=== PATIENT | female | born 1990 | race Caucasian/White ===

== ENCOUNTER 2020-04-04 07:30 | Emergency (ER) | payer BC, MEDICAID ==
[~2020-04-04] VITALS: Ht 170.2 cm; Wt 81.0 kg
[~2020-04-04 07:30] MED LIST: CALC500T2 PO; FERR325E14 PO; FOLI1TAB19 PO; PREN-385 PO
[2020-04-04 07:34] VITALS: BP 130/77
--- NOTE | 2020-04-04 07:49 | NUR ---
29 Y/O FEMALE C/O ANXIETY AND INSOMNIA X1 WEEK. PT DENIES ANY RECREATIONAL DRUG USE, AND STATES SHE HAS BEEN TAKING MELATONIN AND CBD FOR TWO WEEKS. RESPIRATIONS EVEN AND UNLABORED. PATIENT IS RESTLESS AND FEELS LIKE SHE CANNOT SIT DOWN, SHE MUST STAY STANDING. TREMORS NOTED IN BILAT LEGS. AAOX4. AMBULATORY VSS NKDA
[2020-04-04 08:27] VITALS: BP 130/77
--- NOTE | 2020-04-04 08:27 | NUR ---
Patient discharged with v/s stable. Written and verbal after care instructions given and explained. Patient alert, oriented and verbalized understanding of instructions. Ambulatory with steady gait. All questions addressed prior to discharge. ID band removed. Patient advised to follow up with PMD. Rx of AMBIEN, DIPHENHYRDRAMINE given. Patient educated on indication of medication including possible reaction and side effects. Opportunity to ask questions provided and answered.
== END 2020-04-04 08:37 | disposition home or self-care (01) ==
LOC: MED 07:30
DX: G47.00 Insomnia, unspecified (principal); G25.71 Drug induced akathisia; F41.9 Anxiety disorder, unspecified; R03.0 Elevated blood-pressure reading, without diagnosis of hypertension; Z79.899 Other long term (current) drug therapy
CPT/HCPCS: 99283; 99284

== ENCOUNTER 2020-04-08 18:09 | Inpatient (IN) | payer BC ==
[~2020-04-08] VITALS: Ht 170.2 cm; Wt 82.1 kg
[2020-04-08 18:12] VITALS: BP 139/81
[2020-04-08] MEDS ORDERED: NACL 0.9% 1,000 ML IV ONE (18:15)
--- NOTE | 2020-04-08 18:20 | NUR ---
PT WENT TO BED 6 VIA W/C.
--- NOTE | 2020-04-08 18:21 | NUR ---
PT TOOK IBUPROFEN 10 PILLS & AMBIAN 5MG 15 PILLS X 20 MINS AGO. PT IS A&O X4. UNDERSTANDS CONCEPTS, CALM, RELAXED, +SLURRED AND CLEAR SPEECH. GCS OF 15. SLOW TO RESPOND WHEN ASKED QUESTIONS AND WHEN TO DO TASKS. MILD WEAKNESS STRENGTH ON BUE. UNSTEADY AND UNCOORDINATED GAIT. VSS. NO RESP DISTRESS NOTED. LUNG SOUNDS CLEAR ALL THROUGHOUT. EQUAL CHEST RISE AND FALL. PERRLA 5MM BRISK. +AROUSABLE WITH VERBAL STIMULI. CAP REFILL < 3. DENIES ANY NUMBNESS OR TINGLING ON EXTREMTIES. PT SAYS SHE TOOK AMBIEN AND IBUPORFEN TO STOP THE TREMORS AND HER EPILEPSY. PT ALSO SAYS SHE WASNT TRYING TO KILL HERSELF. NKDA. PMH: INSOMNIA, TREMORS, EPILEPSY, SUICIDE ATTEMPT (1 AND 1/2 YEARS AGO BY OD)
--- NOTE | 2020-04-08 18:32 | NUR ---
IV MANAGEMENT INITIATED
--- NOTE | 2020-04-08 18:33 | NUR ---
EKG BEING PERFORMED BY SONY MORE.
[2020-04-08 18:40] LABS: BASOPHILS # (AUTO) 0.1 K/uL (0.00-0.22); BASOPHILS % (AUTO) 0.8 % (0.0-2.0); EOSINOPHILS # (AUTO) 0.2 K/uL (0-0.4); HEMATOCRIT 34.8 % (36-48); HEMOGLOBIN 11.6 g/dL (12.0-16.0); LYMPHOCYTES # (AUTO) 2.2 K/uL (2.5-16.5); LYMPHOCYTES % (AUTO) 35.8 % (20.5-51.1); MEAN CORPUSCULAR HEMOGLOBIN 31 pg (27-31); MEAN CORPUSCULAR HGB CONC 33 g/dL (33-37); MEAN CORPUSCULAR VOLUME 94.6 fL (80-94); MONOCYTES # (AUTO) 0.5 K/uL (0.8-1.0); MONOCYTES % (AUTO) 7.7 % (1.7-9.3); NEUTROPHILS # (AUTO) 3.3 K/uL (1.8-7.7); NEUTROPHILS % (AUTO) 52.7 % (42.2-75.2); PLATELET COUNT (AUTO) 322 K/uL (140-450); RED BLOOD CELL COUNT(AUTO) 3.68 MIL/uL (4.20-5.40); RED CELL DISTRIBUTION WIDTH 14.2 % (11.6-13.7); WHITE BLOOD COUNT (AUTO) 6.3 K/uL (4.8-10.8)
--- NOTE | 2020-04-08 18:45 | NUR ---
CALLED [facility]ISON CONTROL AND SPOKE TO ADELITA, PHARMACIST. ADELITA ADVICE TO ORDER BLOOD WORK OF METABOLIC PANEL, TYLENOL, AND ASPIRIN FOR TOX SCREEN. WELL TO OBSERVE PT FOR 4-6 HRS. ALEJANDRO ERVIN MADE AWARE.
--- NOTE | 2020-04-08 19:03 | NUR ---
NOTIFIED ALEJANDRO CAREY ABOUT PTS HR GOING DOWN TO 44. NO NEW ORDERS OR CHANGES AT THIS TIME. WILL CONT TO MONITOR. ERMDS MADE AWARE.
--- NOTE | 2020-04-08 19:15 | NUR ---
REPORT RECIEVED FROM SONY GREENE. TRANSFER OF CARE AT THIS TIME.
--- NOTE | 2020-04-08 19:19 | NUR ---
Dr. Rider examining patient.
--- NOTE | 2020-04-08 19:20 | NUR ---
[place] [employer] AT BEDSIDE
--- NOTE | 2020-04-08 19:20 | NUR ---
ALEJANDRO LUQUE AT BEDSIDE, EVALUATING PT. [place] [employer] AT BEDSIDE. PT ANSWERED "NO" TO WANTING TO KILL HERSELF, PD DID NOT PUT PT ON HOLD DUE TO PTS ANSWER.
--- NOTE | 2020-04-08 19:20 | NUR ---
Pt report given to SONY GLOVER. Transfer of care at this time.
[2020-04-08 19:21] LABS: ANION GAP 13.7 (8-16); CARBON DIOXIDE 28.5 mmol/L (21-32); CHLORIDE 100 mmol/L (98-107); CREATININE 0.8 mg/dL (0.6-1.3); GFR ARICAN-AMERICAN 108 mL/min (>90); GLUCOSE 78 mg/dL (74-106); POTASSIUM 3.2 mmol/L (3.5-5.1); SODIUM SERUM 139 mmol/L (136-145); UREA NITROGEN, BLOOD 10 mg/dL (7-18)
[2020-04-08 19:24] LABS: BARBITURATE, URINE NEGATIVE ng/ml (NEG <=200); BENZODIAZEPINE, URINE NEGATIVE ng/mL (NEG <=200); CANNABINOID, URINE POSITIVE ng/mL (NEG <=50); COCAINE, URINE NEGATIVE ng/mL (NEG <=300); OPIATE, URINE NEGATIVE ng/mL (NEG <=2000); PHENCYCLIDINE SCREEN,URINE NEGATIVE ng/mL (NEG <=25)
[2020-04-08 19:25] LABS: ASPARTATE AMINOTRANSFERASE 17 U/L (15-37); TOTAL BILIRUBIN 0.4 mg/dL (0.0-1.0)
[2020-04-08 19:27] LABS: ACETAMINOPHEN < 0.5 ug/ml (10-30); SALICYLATE < 2.8 mg/dL (2.8-20.0)
--- NOTE | 2020-04-08 19:48 | NUR ---
PT UNAROUSABLE TO NAME. PT BARELY ABLE TO OPEN EYES. PT ON MACHINERY ENGINEER/PULSE OX, IN HIGH FOWELRS POSITION. VSS. EQUAL CHEST RISE AND FALL. BED LOCKED AND IN LOWEST POSITION. SIDE RAILS X2.
--- NOTE | 2020-04-08 21:00 | NUR ---
PT STILL ONLY ABLE TO KEEP HER EYES OPEN FOR A FEW SECONDS. SLOW SLURRED SPEECH, A&O X4. EQUAL CHEST RISE AND FALL. PULSE OX AND BRAIDING MACHINE OPERATOR IN PLACE. BED LOCKED AND IN LOWEST POSITION. SIDE RAILS X2.
--- NOTE | 2020-04-08 21:30 | NUR ---
SPOKE WITH PTS ASHLEY TO UPDATE ON PTS CURRENT STATUS AND PLAN OF CARE. [phone]
--- NOTE | 2020-04-08 23:55 | NUR ---
ATTEMPTED TO WAKE PT UP TO TELE PSYCH. PT UNABLE TO KEEP EYES OPEN BUT ANSWERED ALL QUESTIONS APPROPRIATELY, ORIENTED TO NAME, PLACE, TIME AND DATE. ALEJANDRO LUQUE MADE AWARE.
[2020-04-09] MEDS ORDERED: HYDROcodone/APAP 7.5/325 MG 1 TAB PO PRN (00:25)
[2020-04-09] MEDS ORDERED: DOCUSATE SODIUM 100 MG GELCAP PO PRN (00:25)
[2020-04-09] MEDS ORDERED: POTASSIUM CHLORIDE 10 MEQ TABER PO PRN (00:25)
[2020-04-09] MEDS ORDERED: ONDANSETRON 4 MG/2 ML VIAL IM/IVP PRN (00:25)
[2020-04-09] MEDS ORDERED: ACETAMINOPHEN 325 MG TAB PO PRN (00:25)
--- NOTE | 2020-04-09 00:30 | NUR ---
covering for primary RNIlana. assumed pt care at this time.
--- NOTE | 2020-04-09 00:50 | NUR ---
pt able to make conversations for about 2 minutes [address] still lethargic. Dr. Rider made aware.
[2020-04-09 00:53] LABS: FREE T4 (FREE THYROXINE) 0.97 ng/dL (0.76-1.46); MAGNESIUM 1.6 mg/dL (1.8-2.4); PHOSPHORUS 4.4 mg/dL (2.5-4.9); THYROID STIMULATING HORMONE 2.08 uIU/mL (0.34-3.74)
--- NOTE | 2020-04-09 03:00 | NUR ---
PT AWAKE AND ASKING TO USE THE RR. PT AMBULATED WITH STEADY GAIT TO RR, PROVIDED WITH A WASHCLOTH TO CLEAN FACE PT REQUESTED. PT AMBULATED BACK TO BED WITH STEADY GAIT AND PLACED BACK ON COMPANY SECRETARY. PT ASKING IF SHE COULD SPEAK TO HER , PHONE PROVIDED. PT TALKING TO HER IN BED. POSITIONED FOR COMFORT AND PT IS NOW ASLEEP IN BED. COMPANY SECRETARY AND PULSE OX IN PLACE. BED LOCKED AND IN LOWEST POSITION. SIDE RAILS X2.
--- NOTE | 2020-04-09 05:00 | NUR ---
PT IN BED ASLEEP, EASILY AROUSABLE TO NAME. EQUAL CHEST RISE AND FALL, BOLT MAKER AND PULSE OX IN PLACE. SEIZURE PADS IN PLACE. BED LOCKED, LOWEST POSITION, SIDE RAILS X2.
[2020-04-09 05:39] LABS: BASOPHILS # (AUTO) 0.1 K/uL (0.00-0.22); BASOPHILS % (AUTO) 1.1 % (0.0-2.0); EOSINOPHILS # (AUTO) 0.2 K/uL (0-0.4); EOSINOPHILS % (AUTO) 4.9 % (0.0-4.0); HEMATOCRIT 33.8 % (36-48); HEMOGLOBIN 11.4 g/dL (12.0-16.0); LYMPHOCYTES # (AUTO) 1.8 K/uL (2.5-16.5); LYMPHOCYTES % (AUTO) 36.3 % (20.5-51.1); MEAN CORPUSCULAR HEMOGLOBIN 32 pg (27-31); MEAN CORPUSCULAR HGB CONC 34 g/dL (33-37); MEAN CORPUSCULAR VOLUME 94.2 fL (80-94); MONOCYTES # (AUTO) 0.3 K/uL (0.8-1.0); MONOCYTES % (AUTO) 6.7 % (1.7-9.3); NEUTROPHILS # (AUTO) 2.5 K/uL (1.8-7.7); PLATELET COUNT (AUTO) 301 K/uL (140-450); RED BLOOD CELL COUNT(AUTO) 3.59 MIL/uL (4.20-5.40)
[2020-04-09 06:06] LABS: ANION GAP 12.7 (8-16); CARBON DIOXIDE 25.4 mmol/L (21-32); CREATININE 0.7 mg/dL (0.6-1.3); POTASSIUM 4.1 mmol/L (3.5-5.1)
--- NOTE | 2020-04-09 06:36 | NUR ---
PT AMBULATED TO RR WITH STEADY GAIT. PT RETURNED TO BED LOCKED AND IN LOWEST POSITION. SIDE RAILS X2. REBAR BENDER AND PULSE OX IN PLACE.
[2020-04-09] MEDS ORDERED: ZOLP10TA1 PO (06:42)
[2020-04-09] MEDS ORDERED: BEN50 PO (06:42)
--- NOTE | 2020-04-09 07:22 | NUR ---
Patient will be admitted to care of DR. ZAVALA. Admited to TELE. Will go to room 106A. Belongings list completed. Report to SONY MENDOSA.
--- NOTE | 2020-04-09 07:22 | NUR ---
RECEIVED REPORT FROM ER NURSE BRIAN. PT RESTING IN BED, AOX4-DROWSY, ON ROOM AIR WITH LEFT AC #20/SL. ORIENTED PT TO BEDROOM, BED AND CALL LIGHT. DISCUSSED PLAN OF CARE AND PT VERBALIZED UNDERSTANDING. MRSA NARES COLLECTED AND TOLERATED WELL.CALL LIGHT WITHIN REACH. NO S/S OF RESPIRATORY DISTRESS OR DISCOMFORT NOTED AT THIS TIME. WILL CONTINUE TO MONITOR.
[2020-04-09 08:00] VITALS: BP 116/73
--- NOTE | 2020-04-09 08:45 | NUR ---
PATIENT HAS BEEN SCREENED AND CATEGORIZED LOW NUTRITION RISK. PATIENT WILL BE SEEN WITHIN 7 DAYS OF ADMISSION. 04/15/[address]
--- NOTE | 2020-04-09 09:00 | NUR ---
PT RESTING IN BED. CALL LIGHT WITHIN REACH. NO S/S OF RESPIRATORY DISTRESS OR DISCOMFORT NOTED AT THIS TIME. WILL CONTINUE TO MONITOR.
--- NOTE | 2020-04-09 10:00 | NUR ---
DR. OSORIOREES IN TO SEE PT AND WAS PLACED ON A 5150 HOLD. ASHLEY CRUZ IS AWARE. PERSONAL BELONGINGS HAVE BEEN TAKEN BY SECURITY FOR SAFETY. 1:1 SITTER ESTABLISHED. CALL LIGHT WITHIN REACH. NO S/S OF RESPIRATORY DISTRESS OR DISCOMFORT NOTED AT THIS TIME. WILL CONTINUE TO MONITOR.
[2020-04-09] MEDS: LORazepam 0.5 MG TAB PO PRN ×2 (10:57→11:58)
--- NOTE | 2020-04-09 10:57 | NUR ---
PT C/O ANXIETY. DR. ZAVALA ORDERED ATIVAN AND WAS GIVEN. PT TOLERATED WELL. CALL LIGHT WITHIN REACH. NO S/S OF RESPIRATORY DISTRESS OR DISCOMFORT NOTED AT THIS TIME. WILL CONTINUE TO MONITOR.
--- NOTE | 2020-04-09 11:58 | NUR ---
PT C/O ANXIETY. DR. ZAVALA ON THE UNIT AND WAS ORDERED TO CHANGE ATIVAN TO 1MG AND GIVE THE REMAINING 0.5MG. PT TOLERATED WELL. CALL LIGHT WITHIN REACH. NO S/S OF RESPIRATORY DISTRESS OR DISCOMFORT NOTED AT THIS TIME. WILL CONTINUE TO MONITOR.
--- NOTE | 2020-04-09 14:00 | NUR ---
PT RESTING IN BED. CALL LIGHT WITHIN REACH. NO S/S OF RESPIRATORY DISTRESS OR DISCOMFORT NOTED AT THIS TIME. WILL CONTINUE TO MONITOR.
--- NOTE | 2020-04-09 15:32 | NUR ---
DISCHARGE PLANNING: CONTACTED COLLIN BLACKMAN KILLINGTON AT [phone], NO ANSWER. LEFT MESSAGE. WILL FOLLOW UP. Addendum: 04/10/20 at 923 by Ann-Marie Garcia CONTACTED COLLIN HERNANDEZ AGAIN TO FOLLOW UP, NO ANSWER LEFT MESSAGE. WILL FOLLOW UP. Addendum: 04/10/20 at 924 by Ann-Marie Garcia CM RECEIVED A CALL BACK FROM COLLIN HERNANDEZ MAYELIN ESAU PETTY, SHE STATED NOT ALL [facility] PATIENTS ARE ASSIGNED TO HER. THIS ONE IS ASSIGNED TO RON ESCOBAR AT [phone]. WILL FOLLOW UP. Addendum: 04/10/20 at 1344 by Freddy Butler SS DAVID CONTACTED PHYLICIA [phone] [facility] TO INFORM HER THAT PATIENT IS MEDICALLY CLEARED. PHYLICIA STATED THAT SHE WILL REACH OUT TO PREVIOUS ACCEPTING FACILITY AND CONTINUE TO SEEK PLACEMENT FOR PATIENT.
--- NOTE | 2020-04-09 15:35 | NUR ---
SOCIAL WORK NOTE: Patient's Orientation Person Situation Place Time Information Provided By PATIENT Comments DAVID MET WITH PATIENT AT BEDSIDE TO COMPLETE ASSESSMENT AND ASSESS FOR RISK. Brokerage Office Manager, Realtionship and Phone Number ASHLEY CRUZ [phone] [facility] Power of Manager Commodities No Does Patient Have a POLST No Identifying Problems Mental Health Is A Social Work Consult Needed No Mandate Report Filed No Explanation Of Identifying Problems PATIENT IS A 30-YEAR-OLD FEMALE ADMITTED FOR OVERDOSE. PATIENT HAS NO REPORTED PMHX. PATIENT DENIED MENTAL HEALTH HISTORY AND SUBSTANCE ABUSE HISTORY. PATIENT WAS GUARDED DURING ASSESSMENT AND STATED THAT HER OVERDOSE WAS ACCIDENTAL. PATIENT STATED THAT SHE TOOK HER MEDICATION AND THAT SHE DID NOT REALIZE HOW MUCH SHE TOOK. PATIENT DENIED THAT SHE OVERDOSED. PATIENT REFUSED ALL RELEVANT RESOURCES AND DISCONTINUED ASSESSMENT. Admitted From Home Pre-Admission Level Of Functioning Status Independent/Ambulatory Prior Resources/Services Used In Last 12 Months No Prior Resources Used Prior DME No Prior DME Used Dialysis Comments PATIENT STATED SHE DOES NOT RECEIVE DIALYSIS. Living Situation Lives With Family House Patient Had Caregiver No Home Support No Caregiver Issues Financial Issues No Known Financial Issue Factors/Needs Psych Placement/Referral Pt/Rep Participated In Discharge Plan Yes Patient/Family Agress With Discharge Plan Yes Discharge Plan Comments TENTATIVE DISCHARGE PLAN IS FOR PATIENT TO BE DISCHARGED TO PSYCHIATRIC FACILITY. DC Plan Status Initiated Addendum: 04/09/20 at 1536 by Freddy Butler SS DAVID FAXED [id number] [facility] [phone]. [facility] RECEIVED [phone] AND CLINICALS.
[2020-04-09 16:00] VITALS: BP 110/63
--- NOTE | 2020-04-09 16:00 | NUR ---
PT RESTING IN BED. USED PHONE TO CALL AFTER HE WAS UPDATED. CALL LIGHT WITHIN REACH. NO S/S OF RESPIRATORY DISTRESS OR DISCOMFORT NOTED AT THIS TIME. WILL CONTINUE TO MONITOR.
--- NOTE | 2020-04-09 17:12 | NUR ---
CC has received packet.
--- NOTE | 2020-04-09 18:00 | NUR ---
PT SLEEPING IN BED. CALL LIGHT WITHIN REACH. NO S/S OF RESPIRATORY DISTRESS OR DISCOMFORT NOTED AT THIS TIME. WILL CONTINUE TO MONITOR.
--- NOTE | 2020-04-09 19:16 | NUR ---
Call Center PM shift is aware of patient and will work on bed placement during shift.
--- NOTE | 2020-04-09 19:28 | NUR ---
Referrals were faxed to [facility] and [facility] for review. Tele unit will be notified if a bed is available and Call Center will follow up during shift.
--- NOTE | 2020-04-09 19:30 | NUR ---
ENDORSED PT CARE TO LANDSCAPE MANAGER NURSE TING FOR CONTINUITY OF CARE. PT IN STABLE CONDITIONS AT THIS TIME.
--- NOTE | 2020-04-09 19:30 | NUR ---
RECEIVED PT AAOX4 , NID - O2 SAT WNL , IV SITE INTACT AND PATENT , ON SUICIDAL WATCH - [address] VEGA - ON 1:1 SITTER . SAFETY MEASURES IN PLACE . PLAN OF CARE DISCUSSED BUT SHOWING LESS INTEREST AND MOTIVATION - NEEDS REINFORCEMENT . ON TELE MONITOR . WILL CONT. TO MONITOR . DENIES ANY PAIN .
[2020-04-09 20:00] VITALS: BP 113/68
--- NOTE | 2020-04-09 20:49 | NUR ---
Spoke with Martín with [facility] regarding bed placement. Requested to have patients RN call [facility] for report on patient and they will let us know if they can accommodate.
--- NOTE | 2020-04-09 20:52 | NUR ---
Called [facility] Tele unit and spoke with patients nurse Josseline. Was asked by Josseline to call back due to being in another patients room.
--- NOTE | 2020-04-09 21:12 | NUR ---
Called [facility] Tele unit and gave patients nurse Aurelia phone number to call report on patient and also let patient's nurse know that they will let her know if they will accommodate.
--- NOTE | 2020-04-09 21:30 | NUR ---
WHEN I ATTEMPTING TO CONTACT THE FESTUS HALEY TO GIVE THE REPORT - SOME ONE FROM [facility] CALL ME AND WANTS GATHER PT'S INFO TO ASSESS IF THEY CAN ACCOMODATE THE PT . - WHEN THE GEOCHEMISTRY TEACHER OF [facility] KNOWS ROMERO THE PT HAS MEDICAL HX OF EPILEPSY - SHE ASKING ME IF THE PT IS MEDICALLY CLEARED FROM TRANSFER - TO SUM IT UP ALL - OUR THE GEOCHEMISTRY TEACHER IS NOT YET DECIDE IF THEY CAN ACCOMODATE THE PT. BECAUSE THEY WANT THE DOCTOR DECLARED THE PT MEDICALLY CLEARED BEFORE THE TRANSFER . THERE IS NO DOCTOR'S ORDER FROM DR. VEGA THAT PT. IS FOR TRANSFER TO [facility] PLUS DR. ZAVALA NOT YET FINALIZED THE PT'S STATUS IF SHE IS MEDICALLY CLEARED SINCE THE PT. HAS HX OF EPILEPSY - CHARGE NURSE JOHN INFORMED ABOUT THIS . WILL ENDORSE TO AM SHIFT ABOUT THIS MATTER TAO . Addendum: 04/09/20 at 2303 by Josseline Kenny RN THE NURSE KIM ENDORSED TO ME DR. ZAVALA WANTS TO FIND OUT THE ROOT / CAUSE OF PT'S TREMORS .- WILL ENDORSE - HANDY Addendum: 04/10/20 at 0401 by Josseline Kenny RN THE WORDS CLEARED FROM TRANSFER IN ABOVE NURSE'S NOTE IS TYPOGRAPHICALLY ERROR , INSTEAD OF CLEARED TO TRANSFER . AND THE WORD " OUR " BEFORE THE GEOCHEMISTRY TEACHER IS AN ERROR TOO INSTEAD OF THE GEOCHEMISTRY TEACHER .- HANDY
--- NOTE | 2020-04-09 22:50 | NUR ---
REFER TO DR. SALLY OLIVEIRA. HR ON TELE MONITOR 44 , BP 90/59 , O2 SAT 99 % , PT IS KEEP ASKING FOR ATIVAN - THE ATIVAN 0.5 MG /TAB P.O LAST GIVEN WAS 1158AM . Addendum: 04/10/20 at 0406 by Josseline Kenny RN ON 1 :1 MACKTER .
--- NOTE | 2020-04-09 23:03 | NUR ---
Call Center is aware of situation and is pending clearance from MD, will endorse to AM shift to follow up.
--- NOTE | 2020-04-09 23:10 | NUR ---
GIVE ANOTHER ATIVAN 0.5 MG /TAB P.O - STAT PRN ORDERD BY . WILL CONT. TO MONITOR . Addendum: 04/10/20 at 0407 by Josseline Kenny RN ON 1:1 SHARLA
[2020-04-09] MEDS ORDERED: LORazepam 0.5 MG TAB PO PRN (23:25)
[2020-04-10] VITALS: BP 90/60
[2020-04-10] MEDS ORDERED: LORazepam 0.5 MG TAB PO STA (00:03)
--- NOTE | 2020-04-10 00:06 | NUR ---
PHARMACIST CALL ME - TO REVISE THE ATIVAN ORDER - SHE SAID JUST PUT STAT .
--- NOTE | 2020-04-10 00:49 | NUR ---
I'M ABOUT TO GIVE ATIVAN , BUT THE PT SLEEPING , CHEST RISE AND FALL EQUALLY - SKIN IS GOOD IN COLOR , APPEARS COMFORTABLY SLEEPING ON BED - ON TELE MONITOR - WILL CONT. TO MONITOR - JUST GOT LATEST V/S . Addendum: 04/10/20 at 0407 by Josseline Kenny RN ON 1:1 SHARLA
--- NOTE | 2020-04-10 02:00 | NUR ---
MADE ROUNDS , - PT - SLEEPING - CHEST RISE AND FALL EQUALLY , SKIN IN GGOD COLOR - ON TELE MONITOR , ON 1:1 SITTER . WILL CONT. TO MONITOR .
--- NOTE | 2020-04-10 03:35 | NUR ---
MADE ROUNDS , SLEEPING CHEST RISE AND FALL EQUALLY - - ON TELE MONITOR.
[2020-04-10 04:00] VITALS: BP 100/60
--- NOTE | 2020-04-10 05:20 | NUR ---
COMPLAINING OF ANXIETY - SHE SHOWING TO ME HER LEGS HAS TREMORS - THE ONE DOSE OF 0.5 MG OF ATIVAN TAB. GIVEN - INFORM JOHN THE CHARGE THAT TAB IS SUPPOSE TO BE AT 0002 BUT I DID NOT BOTHER THE PT. ON THAT TIME JUST TO GIVE THE ATIVAN BEC. ON THAT TIME PT IS SOUNDLY SLEEPING - APPEARS NOT IN ANXIETY - AND I LET HER TO RELAX AND SLEEP - WILL ENDORSE .
--- NOTE | 2020-04-10 05:26 | NUR ---
IN THE FRONT OF JOHN THE CHARGE NURSE I WASTE THE 0.5MG OF ATIVAN ( THE HALF OF ATIVAMN 1MG /TAB THAT I TOOK OUT WHILE AGO - WE CAN'T DO A WASTE RECORD IN THE [facility] BECAUSE THE DRUG DOES NOT APPEAR ON THE SCREEN .
[2020-04-10 06:08] LABS: BASOPHILS % (AUTO) 0.8 % (0.0-2.0); EOSINOPHILS # (AUTO) 0.2 K/uL (0-0.4); EOSINOPHILS % (AUTO) 3.6 % (0.0-4.0); HEMOGLOBIN 12.8 g/dL (12.0-16.0); LYMPHOCYTES # (AUTO) 1.6 K/uL (2.5-16.5); LYMPHOCYTES % (AUTO) 31.9 % (20.5-51.1); MEAN CORPUSCULAR HEMOGLOBIN 32 pg (27-31); MEAN CORPUSCULAR HGB CONC 34 g/dL (33-37); MEAN CORPUSCULAR VOLUME 94.7 fL (80-94); MONOCYTES # (AUTO) 0.4 K/uL (0.8-1.0); MONOCYTES % (AUTO) 7.4 % (1.7-9.3); NEUTROPHILS # (AUTO) 2.9 K/uL (1.8-7.7); NEUTROPHILS % (AUTO) 56.3 % (42.2-75.2); PLATELET COUNT (AUTO) 348 K/uL (140-450); RED BLOOD CELL COUNT(AUTO) 4.01 MIL/uL (4.20-5.40); WHITE BLOOD COUNT (AUTO) 5.1 K/uL (4.8-10.8)
[2020-04-10 06:41] LABS: CARBON DIOXIDE 25.9 mmol/L (21-32); CREATININE 0.7 mg/dL (0.6-1.3); POTASSIUM 3.9 mmol/L (3.5-5.1)
[2020-04-10 06:48] LABS: MAGNESIUM 1.7 mg/dL (1.8-2.4); PHOSPHORUS 4.1 mg/dL (2.5-4.9)
--- NOTE | 2020-04-10 07:30 | NUR ---
RECEIVED REPORT FROM NIGHT NURSE PATIENT IS SLEEPING, ON ROOM AIR, 5150 HOLD AND 1:1 SITTER, AMBULATORY, SINUS BRADYCARDIA, AND IV SITES INTACT AND PATENT ON LEFT AC SALINE LOCK. SAFETY MEASURES IN PLACE AND CALL LIGHT WITHIN REACH. WILL CONTINUE TO MONITOR.
--- NOTE | 2020-04-10 07:30 | NUR ---
ENDORSED TO AM SHIFT - PT STABLE - SHE HAD ONCE VOIDED SHE SAID - I TOLD TO AM SHIFT NURSE MICHELINE PT IS REQUESTING FOR STOOL SOFTENER .- ENDORSED .
[2020-04-10 08:00] VITALS: BP 108/63
--- NOTE | 2020-04-10 08:00 | NUR ---
MAGNESIUM LEVEL AT 1.7 DR ZAVALA AWARE AND ORDERED MAGNESIUM OXIDE 400 MG ONCE.
--- NOTE | 2020-04-10 08:15 | NUR ---
MEDICATION GIVEN DOCUSATE SODIUM 100MG FOR CONSTIPATION. PATIENT STATED UNABLE TO SLEEP WELL LAST NIGHT AND STILL WILL TREMORS ON BOTH LEGS.
--- NOTE | 2020-04-10 08:48 | NUR ---
MAGNESIUM OXIDE GIVEN AT THIS TIME. PT IS STABLE
[2020-04-10] MEDS ORDERED: MAGNESIUM OXIDE 400 MG TAB PO SCH (09:00)
--- NOTE | 2020-04-10 09:07 | NUR ---
Change of shift report given earlier. Will continue to monitor notes for confirmation of clearance to proceed with bed placement
[2020-04-10 10:08] LABS: T4 (THYROXINE) 7.2 ug/dL (4.5-12.0)
--- NOTE | 2020-04-10 10:41 | NUR ---
per Charge nurse Lanre CARDOZA , Call Center will no longer need to look for placement , pt. is to be DCD in the AM. Lanre CARDOZA made aware just to notify Call Center if anything changes.
[2020-04-10 12:00] VITALS: BP 107/52
--- NOTE | 2020-04-10 12:00 | NUR ---
MADE ROUND AT THIS TIME PT IS AWAKE AND CHECK VITAL SIGNS BP 107/52 SC 85 SINUS BRADYCARDIA ON TELEMONITOR HR 57.
[2020-04-10] MEDS: LORazepam 1 MG TAB PO PRN ×2 (13:13→21:01)
--- NOTE | 2020-04-10 13:14 | NUR ---
ANXIETY MEDICATIONS GIVEN CHECK VITAL SIGNS PRIOR TO MEDICATION BP 109/[address] ZAVALA IS AWARE.
--- NOTE | 2020-04-10 15:00 | NUR ---
MADE ROUNDS AT THIS TIME PT IS STABLE AND SLEEPING, NO DISTRESS NOTED.
[2020-04-10 16:00] VITALS: BP 91/64
--- NOTE | 2020-04-10 19:20 | NUR ---
ENDORSED TO NIGHT NURSE FOR CONTINUITY OF CARE. PT IS STABLE.
--- NOTE | 2020-04-10 19:25 | NUR ---
RECEIVED PT IN STABLE CONDITION FROM AM NURSE. MED SURG PT WITH 1;1 SITTER IN ATTENDANCE. AWAKE,ALERT AND ORIENTED X4. NO C/O ANY DISCOMFORT NOR PAIN NOTED. RESTING IN BED WHICH IS IN LOW POSITION. SIDE RAILS UP X2. WILL CONTINUE TO CLOSELY MONITOR .
[2020-04-10 20:00] VITALS: BP 90/50
--- NOTE | 2020-04-10 21:01 | NUR ---
PT C/O ANXIETY. MEDICATED WITH ATIVAN 1 MG PO. WILL CONTINUE TO MONITOR.
[2020-04-10] MEDS ORDERED: traZODone 50 MG TAB PO SCH (22:00)
[2020-04-10] MEDS ORDERED: BENZTROPINE 1 MG TAB PO SCH (22:00)
[2020-04-11] VITALS: BP 90/60
--- NOTE | 2020-04-11 00:34 | NUR ---
PT C/O UNABLE TO SLEEP. TRAZODONE AND COGENTIN PO GIVEN PER MD ORDER. WILL CONTINUE TO MONITOR.
[2020-04-11 04:00] VITALS: BP 90/48
--- NOTE | 2020-04-11 06:00 | NUR ---
PT WAS ABLE TO GET SOME SLEEP DURING THE NIGHT.
--- NOTE | 2020-04-11 07:05 | NUR ---
ENDORSED PT IN STABLE CONDITION TO AM NURSE.
--- NOTE | 2020-04-11 07:10 | NUR ---
RECEIVED REPORT FROM NIGHT NURSE PT IS SLEEPING , ON ROOM AIR, SKIN INTACT, NO DISTRESS NOTED, IV SITES LEFT AC INTACT, SALINE LOCK, SAFETY MEASURES IN PLACE, CALL LIGHT WITHIN REACH. WILL CONTINUE TO MONITOR.
[2020-04-11 08:00] VITALS: BP 95/59
--- NOTE | 2020-04-11 09:00 | NUR ---
MADE ROUND PT IS SLEEPING NO DISTRESS NOTED DENIES PAIN.
--- NOTE | 2020-04-11 11:00 | NUR ---
PATIENT IS BEING DISCHARGE TO HOME. INFORMED PATIENT.
[2020-04-11 12:00] VITALS: BP 109/59
[2020-04-11] MEDS ORDERED: TRAZ-343 PO (13:09)
[2020-04-11] MEDS ORDERED: BENZ-203 PO (13:09)
--- NOTE | 2020-04-11 15:35 | NUR ---
DISCHARGED INSTRUCTIONS GIVEN TO PATIENT AT THE BEDSIDE AND ENCOURAGED PATIENT TO FOLLOW UP WITH PCP 2-3 DAYS AND FOLLOWUP WITHE HER PSYCHIATRIST. ENCOURAGED TO CONTINUE HOME MEDICATIONS AND NEW PRESCRIBED MEDICATIONS. INSTRUCTED TO SEEK MEDICAL HELP INCASE OF EMERGENCIES AND TO VERBALIZES FEELING IN CASE OF DEPRESSION, RELAXATION TECHNIQUES TO CALM SELF AND BE ABLE TO SLEEP. REMOVED TELEMONITOR AND RETURNED TO PIT MANAGER, REMOVED ID BANDS,RETURNED PATIENT BELONGINGS AND CHANGED PATIENT TO OWN CLOTHES, ESCORTED TO FRONT LOBBY VIA WHEEL CHAIR, PT IS DISCHARGED TO HOME, PT IS STABLE.
== END 2020-04-11 15:35 | disposition home or self-care (01) | DRG 917 ==
LOC: MED 18:09 → MTU 04-09 00:13
PROVIDERS: ADMIT Emergency Medicine; ATTEND Emergency Medicine
DX: T42.6X1A Poisoning by other antiepileptic and sedative-hypnotic drugs, accidental (unintentional), initial encounter (principal); G92 Toxic encephalopathy; G40.909 Epilepsy, unspecified, not intractable, without status epilepticus; F41.9 Anxiety disorder, unspecified; F32.9 Major depressive disorder, single episode, unspecified; E87.6 Hypokalemia; E83.42 Hypomagnesemia; F20.9 Schizophrenia, unspecified; Z20.828 Contact with and (suspected) exposure to other viral communicable diseases; T39.311A Poisoning by propionic acid derivatives, accidental (unintentional), initial encounter; Y92.89 Other specified places as the place of occurrence of the external cause; Z80.3 Family history of malignant neoplasm of breast
CPT/HCPCS: 36415; 80048; 80053; 80305; 83735; 84100; 84436; 84439; 84443; 84479; 85025; 87081; 93005; 96360; 99285; G0480; G0482

== ENCOUNTER 2020-06-24 13:43 | Emergency (ER) | payer BC ==
[~2020-06-24] VITALS: Ht 170.2 cm; Wt 64.4 kg
[~2020-06-24 13:43] MED LIST changes: +BEN50 PO; +BENZ-203 PO; +TRAZ-343 PO; +ZOLP10TA1 PO
[2020-06-24 14:15] VITALS: BP 132/87
--- NOTE | 2020-06-24 14:23 | NUR ---
Pt in triage room getting evaluated and getting EKG performed by EMT.
--- NOTE | 2020-06-24 14:24 | NUR ---
30 y/o female from home c/o multiple syncopal episodes today. Patient will have episode of syncope and remember conversation prior to episode. Denies pain at this time. + nausea. VSS
--- NOTE | 2020-06-24 14:26 | NUR ---
Jesus leija in ED - 06/24/20 at 1427 by MED1 ILEANA castellano takes pt in W/C to CT.
--- NOTE | 2020-06-24 14:27 | NUR ---
trailer technician takes pt in W/C to XR-chest.
[2020-06-24] MEDS ORDERED: LORazepam 1 MG TAB PO ONE (14:30)
--- NOTE | 2020-06-24 14:48 | NUR ---
JONNIE Beatty at chairside examining patient
[2020-06-24 15:01] VITALS: BP 132/87
--- NOTE | 2020-06-24 15:01 | NUR ---
Patient does not wish to proceed with medical care recommended by JONNIE MORELOS. Patient given information related to possible complications, up to and including , which could occur as a result of leaving hospital at this time. Patient verbalizes understanding of risks involved leaving against medical advice. Patient has signed AMA form.
== END 2020-06-24 15:01 | disposition left against medical advice (07) ==
LOC: MED 13:43
DX: R55 Syncope and collapse (principal); F41.9 Anxiety disorder, unspecified; F31.9 Bipolar disorder, unspecified; R03.0 Elevated blood-pressure reading, without diagnosis of hypertension; Z79.899 Other long term (current) drug therapy
CPT/HCPCS: 71045; 93005; 99283